=== PATIENT | male | born 1935 | race Two or more races ===

== ENCOUNTER → 2016-09-29 | Outpatient (CLI) | payer MEDICARE ==
[2016-09-29 09:57] LABS: ALANINE AMINOTRANSFERASE 77 U/L (21-72); ALKALINE PHOSPHATASE 59 U/L (38-126); ASPARTATE AMINO TRANSFERASE 41 U/L (17-59); BILIRUBIN,DIRECT 0.5 mg/dL (0.0-0.4); CHOLESTEROL 141.79 mg/dL (0-200); Direct HDL 59 mg/dL (>40); MAGNESIUM 2.1 mg/dL (1.6-2.3); TOTAL PROTEIN 6.8 g/dL (6.3-8.2); TRIGLYCERIDES 125 mg/dL (<150)
[2016-09-29 10:06] LABS: ANION GAP 12 (5-19); BLOOD UREA NITROGEN 19 mg/dL (7-20); CALCIUM 9.6 mg/dL (8.4-10.2); CARBON DIOXIDE 26 mmol/L (22-30); CHLORIDE 103 mmol/L (98-107); CREATININE RESULT 1.01 mg/dL (0.52-1.25); GLUCOSE 129 mg/dL (75-110); POTASSIUM 4.4 mmol/L (3.6-5.0); SODIUM 141.4 mmol/L (137-145)
[2016-09-29 10:08] LABS: DIRECT LDL 50 mg/dL (<100)
== END ==
LOC: OD 08:10
PROVIDERS: ATTEND Internal Medicine Cardiovascular Disease
DX: Z79.899 Other long term (current) drug therapy (principal); I49.3 Ventricular premature depolarization; E78.00 Pure hypercholesterolemia, unspecified
CPT/HCPCS: 36415; 80048; 80061; 80076; 82977; 83735

== ENCOUNTER → 2017-01-01 | Outpatient (CLI) | payer MEDICARE ==
[2017-01-01 10:32] LABS: ALANINE AMINOTRANSFERASE 28 U/L (21-72); ALBUMIN 3.6 g/dL (3.5-5.0); ALKALINE PHOSPHATASE 78 U/L (38-126); ANION GAP 10 (5-19); ASPARTATE AMINO TRANSFERASE 25 U/L (17-59); BILIRUBIN,DIRECT 0.4 mg/dL (0.0-0.4); BILIRUBIN,TOTAL 0.5 mg/dL (0.2-1.3); BLOOD UREA NITROGEN 24 mg/dL (7-20); CALCIUM 9.8 mg/dL (8.4-10.2); CARBON DIOXIDE 25 mmol/L (22-30); CHLORIDE 103 mmol/L (98-107); CHOLESTEROL 130.15 mg/dL (0-200); CREATININE RESULT 0.89 mg/dL (0.52-1.25); Direct HDL 53 mg/dL (>40); GLUCOSE 137 mg/dL (75-110); POTASSIUM 4.7 mmol/L (3.6-5.0); SODIUM 138.3 mmol/L (137-145); TOTAL PROTEIN 6.5 g/dL (6.3-8.2); TRIGLYCERIDES 96 mg/dL (<150)
[2017-01-01 10:43] LABS: DIRECT LDL 51 mg/dL (<100)
== END ==
LOC: OD 08:23
PROVIDERS: ATTEND Internal Medicine Cardiovascular Disease
DX: Z79.899 Other long term (current) drug therapy (principal); E78.00 Pure hypercholesterolemia, unspecified; R73.9 Hyperglycemia, unspecified
CPT/HCPCS: 36415; 80048; 80061; 80076; 83036

== ENCOUNTER → 2017-04-26 | Outpatient (CLI) | payer MEDICARE, OTHER ==
[2017-04-26 09:56] LABS: ANION GAP 13 (5-19); BLOOD UREA NITROGEN 18 mg/dL (7-20); CARBON DIOXIDE 26 mmol/L (22-30); CHLORIDE 101 mmol/L (98-107); CREATININE RESULT 1.23 mg/dL (0.52-1.25); GLUCOSE 169 mg/dL (75-110); MAGNESIUM 1.8 mg/dL (1.6-2.3); POTASSIUM 3.8 mmol/L (3.6-5.0); SODIUM 140.1 mmol/L (137-145)
== END ==
LOC: OD 08:14
PROVIDERS: ATTEND Internal Medicine Cardiovascular Disease
DX: E11.9 Type 2 diabetes mellitus without complications (principal); I49.3 Ventricular premature depolarization; E55.9 Vitamin D deficiency, unspecified
CPT/HCPCS: 36415; 80048; 82306; 83036; 83735

== ENCOUNTER → 2017-08-01 | Outpatient (CLI) | payer MEDICARE, OTHER ==
[2017-08-01 12:18] LABS: ANION GAP 12 (5-19); BLOOD UREA NITROGEN 24 mg/dL (7-20); CALCIUM 9.9 mg/dL (8.4-10.2); CARBON DIOXIDE 23 mmol/L (22-30); CHLORIDE 106 mmol/L (98-107); GLUCOSE 169 mg/dL (75-110); POTASSIUM 4.2 mmol/L (3.6-5.0); SODIUM 141.2 mmol/L (137-145)
[2017-08-01 15:38] LABS: CHOLESTEROL 159.44 mg/dL (0-200); TRIGLYCERIDES 109 mg/dL (<150)
[2017-08-01 15:48] LABS: DIRECT LDL 56 mg/dL (<100)
== END ==
LOC: OD 10:51
PROVIDERS: ATTEND Internal Medicine Cardiovascular Disease
DX: E78.00 Pure hypercholesterolemia, unspecified (principal); I10 Essential (primary) hypertension; E11.9 Type 2 diabetes mellitus without complications; E55.9 Vitamin D deficiency, unspecified; E83.42 Hypomagnesemia
CPT/HCPCS: 36415; 80048; 80061; 82306; 83036; 83735

== ENCOUNTER → 2018-02-26 | Outpatient (CLI) | payer MEDICARE, OTHER ==
[2018-02-26 10:22] LABS: ANION GAP 8 (5-19); BLOOD UREA NITROGEN 18 mg/dL (7-20); CALCIUM 9.8 mg/dL (8.4-10.2); CARBON DIOXIDE 28 mmol/L (22-30); CHLORIDE 104 mmol/L (98-107); GLUCOSE 107 mg/dL (75-110); POTASSIUM 4.8 mmol/L (3.6-5.0); SODIUM 140.2 mmol/L (137-145)
== END ==
LOC: OD 08:39
PROVIDERS: ATTEND Internal Medicine Cardiovascular Disease
DX: I10 Essential (primary) hypertension (principal); I49.3 Ventricular premature depolarization; E11.9 Type 2 diabetes mellitus without complications
CPT/HCPCS: 36415; 80048; 83036

== ENCOUNTER 2018-04-18 17:51 | Inpatient (IN) | payer MEDICARE ==
[2018-04-18] MEDS ORDERED: FUROSEMIDE INJ/PF 20 MG/2 ML SDV IV ONE ×2 (18:20→21:00)
[2018-04-18 18:32] LABS: ABSOLUTE EOSINOPHILS # (AUTO) 0.1 10^3/uL (0.0-0.6); ABSOLUTE LYMPHOCYTES (AUTO) 1.7 10^3/uL (0.5-4.7); ABSOLUTE MONOCYTES (AUTO) 1.4 10^3/uL (0.1-1.4); ABSOLUTE NEUT (AUTO) 11.6 10^3/uL (1.7-8.2); BASOPHILS % (AUTO) 0.1 % (0-2); EOSINOPHILS % (AUTO) 0.4 % (0-6); HEMATOCRIT 37.6 % (37.9-51.0); LYMPHOCYTES % (AUTO) 11.6 % (13-45); MEAN CORPUSCULAR HEMOGLOBIN 33.8 pg (27.0-33.4); MEAN CORPUSCULAR HGB CONC 34.4 g/dL (32.0-36.0); MEAN CORPUSCULAR VOLUME 98 fl (80-97); MONOCYTES % (AUTO) 9.2 % (3-13); PLATELET COUNT 486 10^3/uL (150-450); RED BLOOD COUNT 3.83 10^6/uL (4.35-5.55); SEGMENTED NEUTROPHILS % (AUTO) 78.7 % (42-78); TOTAL CELLS COUNTED % (AUTO) 100 %; WHITE BLOOD COUNT 14.7 10^3/uL (4.0-10.5)
[2018-04-18 18:38] LABS: INTERNATIONAL RATION (INR) 1.17; PROTHROMBIN TIME 15.5 SEC (11.4-15.4)
[2018-04-18 18:47] LABS: ALANINE AMINOTRANSFERASE 25 U/L (21-72); ALBUMIN 2.9 g/dL (3.5-5.0); ALKALINE PHOSPHATASE 747 U/L (38-126); ANION GAP 12 (5-19); ASPARTATE AMINO TRANSFERASE 25 U/L (17-59); BILIRUBIN,DIRECT 0.7 mg/dL (0.0-0.4); BILIRUBIN,TOTAL 0.9 mg/dL (0.2-1.3); BLOOD UREA NITROGEN 60 mg/dL (7-20); CALCIUM 9.2 mg/dL (8.4-10.2); CARBON DIOXIDE 25 mmol/L (22-30); CHLORIDE 97 mmol/L (98-107); CREATINE KINASE 46 U/L (55-170); GLUCOSE 237 mg/dL (75-110); POTASSIUM 4.5 mmol/L (3.6-5.0); SODIUM 133.5 mmol/L (137-145); TOTAL PROTEIN 6.3 g/dL (6.3-8.2)
[2018-04-18 18:58] LABS: CREATINE KINASE MB 2.17 ng/mL (<4.55); TROPONIN I 0.017 ng/mL
--- NOTE | 2018-04-18 19:14 | RADIOLOGY REPORT (SQ) ---
EXAM DESCRIPTION: CHEST SINGLE VIEW COMPLETED DATE/TIME: 04/18/2018 6:50 pm REASON FOR STUDY: short of breath COMPARISON: None. EXAM PARAMETERS: NUMBER OF VIEWS: One view. TECHNIQUE: Single frontal radiographic view of the chest acquired. RADIATION DOSE: NA LIMITATIONS: None. FINDINGS: LUNGS AND PLEURA: Dense opacity or mass in the left midzone. Minimal opacity at the left base. Right lung is clear. MEDIASTINUM AND HILAR STRUCTURES: No masses. Contour normal. HEART AND VASCULAR STRUCTURES: Heart normal in size. Normal vasculature. BONES: No acute findings. HARDWARE: None in the chest. OTHER: No other significant finding. IMPRESSION: Dense opacity or mass in the left midzone. Left basilar pneumonia. TECHNICAL DOCUMENTATION: JOB ID: [id number] [employer]- All Rights Reserved Reading location - IP/workstation name: [email or web address]
[2018-04-18] MEDS ORDERED: AZITHROMYCIN INJ 500 MG VIAL IV ONE (20:37)
--- NOTE | 2018-04-18 21:00 | ER Document Report ---
ED General - General Chief Complaint: Shortness Of Breath Stated Complaint: SHORTNESS OF BREATH,WEAKNESS Time Seen by Provider: 04/18/18 18:07 Mode of Arrival: Ambulatory Information source: Patient, Relative TRAVEL OUTSIDE OF THE [place] IN LAST 30 DAYS: No - HPI Patient complains to provider of: dyspnea Onset: Other - 83-year-old man that presents for evaluation of dyspnea as well as leg swelling. He notes that he has had 4 stents placed in the past but is never been told that he has heart failure. Since , 1 week prior, he has had worsening shortness of breath and leg swelling as well as generalized fatigue and malaise. He notes that nothing is made it better and exertion seems to make it much worse 3 days ago he had an episode where he had intense left-sided shoulder pain which then improved steadily and he had an aching shoulder for a day thereafter. Denies any loss of consciousness does endorse some lightheadedness on exertion. - Related Data Allergies/Adverse Reactions: clopidogrel [From Plavix] Allergy (Severe, Verified 04/18/18 22:11) Hives hydrocodone [From Vicodin] Allergy (Unknown, Verified 04/18/18 22:11) acetaminophen [From Vicodin] Allergy (Verified 04/18/18 19:39) Past Medical History - General Information source: Patient, Relative - Social History Smoking Status: Never Smoker Chew tobacco use (# tins/day): No Frequency of alcohol use: Occasional Drug Abuse: None Family History: None Patient has suicidal ideation: No Patient has homicidal ideation: No Renal/ Medical History: Denies: Hx Peritoneal Dialysis Review of Systems - Review of Systems -: Yes All other systems reviewed and negative Physical Exam - Vital signs Vitals: Temp Pulse Resp BP Pulse Ox 98.2 F 77 16 85/46 L 95 04/18/18 17:56 04/18/18 17:56 04/18/18 17:56 04/18/18 17:56 04/18/18 17:56 - General General appearance: Alert In distress: Mild - HEENT Head: Normocephalic Eyes: Normal Conjunctiva: Normal Cornea: Normal - Respiratory Respiratory status: Tachypnea Chest status: Nontender Breath sounds: Rhonchi Chest palpation: Normal - Cardiovascular Rhythm: Regular Heart sounds: Normal auscultation Murmur: No - Abdominal Inspection: Normal Distension: No distension Tenderness: Nontender - Back Back: Normal - Extremities General upper extremity: Normal inspection, Nontender, Normal ROM, Normal strength General lower extremity: Normal inspection, Edema - +3 pitting edema, Normal ROM - Neurological Neuro grossly intact: Yes Cognition: Normal Orientation: AAOx4 - Psychological Associated symptoms: Normal affect, Normal mood Course - Re-evaluation Re-evalutation: 83-year-old man with significant cardiac disease as well as now dyspnea, he does have weight gain appreciable and did have an episode where he had shoulder pain. Because of the concern is this representing decompensated heart failure will administer diuretic this patient has marginal blood pressure right now we will plan for frequent reassessment in the emergency department. Following 20 mg of IV Lasix patient has had his start diuresis. He is got a significant uremia increased creatinine, slight leukocytosis his chest x-ray is concerning for a probable infiltrate. It is difficult to assess whether or not this patient has decompensated heart failure or potentially an underlying insidious infection. He is improved somewhat with the diuretic but he could still have a underlying pneumonia. Clinically he appears fluid overloaded he has edema in the bilateral lower extremities and crackles in the lungs. Have spoken to the hospitalist as I believe that this patient will require admission to the hospital and ongoing monitoring and management. She is agreed to evaluate this patient and admit him to the hospital. I did administer antibiotics as there was a concern that he had a pneumonia on chest x -ray with his dyspnea. - Vital Signs Vital signs: Temp Pulse Resp BP Pulse Ox 98.2 F 80 18 110/54 L 93 04/18/18 23:43 04/18/18 23:43 04/18/18 23:43 04/18/18 23:43 04/18/18 23:43 - Laboratory Result Diagrams: 04/18/18 18:08 04/18/18 18:08 Laboratory results interpreted by me: 04/18/18 04/18/18 04/18/18 18:08 18:08 18:08 WBC 14.7 H RBC 3.83 L Hgb 13.0 L Hct 37.6 L MCV 98 H MCH 33.8 H Plt Count 486 H Seg Neutrophils % 78.7 H Lymphocytes % 11.6 L Absolute Neutrophils 11.6 H PT 15.5 H APTT 44.0 H Sodium 133.5 L Chloride 97 L BUN 60 H Creatinine 1.82 H Est GFR ( Amer) 43 L Est GFR (Non-Af Amer) 36 L Glucose 237 H Direct Bilirubin 0.7 H Alkaline Phosphatase 747 H Creatine Kinase 46 L NT-Pro-B Natriuret Pep Albumin 2.9 L 04/18/18 18:08 WBC RBC Hgb Hct MCV MCH Plt Count Seg Neutrophils % Lymphocytes % Absolute Neutrophils PT APTT Sodium Chloride BUN Creatinine Est GFR ( Amer) Est GFR (Non-Af Amer) Glucose Direct Bilirubin Alkaline Phosphatase Creatine Kinase NT-Pro-B Natriuret Pep 796 H Albumin Discharge - Discharge Clinical Impression: Pneumonia Qualifiers: Pneumonia type: due to unspecified organism Laterality: unspecified laterality Lung location: unspecified part of lung Qualified Code(s): J18.9 - Pneumonia, unspecified organism CHF (congestive heart failure) Qualifiers: Heart failure type: unspecified Heart failure chronicity: unspecified Qualified Code(s): I50.9 - Heart failure, unspecified Dyspnea Qualifiers: Dyspnea type: unspecified Qualified Code(s): R06.00 - Dyspnea, unspecified Condition: Stable Disposition: ADMITTED INPATIENT Admitting Provider: Hospitalist Unit Admitted: Telemetry
[2018-04-18] MEDS ORDERED: PROMETHAZINE HCL INJ 25 MG/1 ML VIAL IV PRN (21:46)
[2018-04-18] MEDS ORDERED: ACETAMINOPHEN 325 MG TABLET PO PRN (21:46)
[2018-04-18] MEDS ORDERED: MAG HYDROX/AL HYDROX/SIMETH SUSP 30 ML UDCUP PO PRN (21:46)
[2018-04-18] MEDS ORDERED: TEMAZEPAM 15 MG CAPSULE PO PRN (21:46)
[2018-04-18] MEDS ORDERED: IPRATROPIUM/ALBUTEROL 0.5-2.5 MG/3 ML AMPUL NEB PRN (21:46)
[2018-04-18] MEDS ORDERED: PROMETHAZINE HCL 25 MG TABLET PO PRN (21:46)
[2018-04-18] MEDS ORDERED: GLUCAGON,HUMAN RECOMB 1 MG INJ IM PRN (21:53)
[2018-04-18] MEDS ORDERED: DEXTROSE 40% GEL 15 GM TUBE PO PRN ×2 (21:53)
[2018-04-18] MEDS ORDERED: DEXTROSE 50%-WATER 25 GM/50 ML DISP.SYRIN IV PRN ×2 (21:53)
[2018-04-18] MEDS ORDERED: CEFTRIAXONE 1 GM/D5W RTU 1 GM/50 ML RTUPB IV SCH (22:00)
[2018-04-18 22:22] LABS: APPEARANCE,URINE SLIGHTLY-CLOUDY; BILIRUBIN,URINE NEGATIVE (NEGATIVE); COLOR,URINE YELLOW; GLUCOSE, URINE NEGATIVE (NEGATIVE); KETONES,URINE NEGATIVE (NEGATIVE); LEUKOCYTE ESTERASE,URINE NEGATIVE (NEGATIVE); NITRITE,URINE NEGATIVE (NEGATIVE); PROTEIN,URINE NEGATIVE (NEGATIVE); URINE SPECIFIC GRAVITY 1.015; UROBILINOGEN,URINE NEGATIVE mg/dL (<2.0)
--- NOTE | 2018-04-18 22:27 | PDOC H&P ---
History of Present Illness Admission Date/PCP: 04/18/2018 ANABELLA DESAI Patient complains of: Shortness of breath History of Present Illness: LIBRA GUZMAN is a 83 year old male with remarkably medical history of ME with 5 stents placed, diabetes mellitus, chronic pancreatic cyst, hypertension. Patient comes to the emergency department after feels sick Thanks evening , tells me he has been feeling bad all over, he denies any pain, complains of lower abdominal pain that day and he went to sleep for 16 hours. Sunday no known started with the left shoulder pain is sharp in nature intense up to 10/ 10 intensity that made him collapse, the pain was not getting worse with movements and never have similar pain in the past, he denies having chest pain at that time but has noticed progressive shortness of breath upon exertion, he has also noticed worsening lower extremities edema which is new to him. Denies cough but feels chest congestion, denies wheezing. Patient has lost 50 pounds in 3 years tells me that was intentionally. Denies night sweats. Today he went to see a doctor at [facility] as he was very concerned about his of shortness of breath and new lower extremities edema and he was sent to the emergency department. In the emergency department the chest x-ray shows opacities in the left mid zone of the left long that it is not clear if this is a mass, edema or pneumonia. In the emergency department the patient had a borderline blood pressure of 95/59, 20+20 mg of IV Lasix given with drop of the blood pressure but subsequently improved. IV azithromycin given. BNP 796, no prior to compare to. Past Medical History Cardiac Medical History: Reports: Coronary Artery Disease - 5 stents placed in 1999, Myocardial Infarction, Hyperlipidema, Hypertension Endocrine Medical History: Reports: Diabetes Mellitus Type 2 GI Medical History: Reports: Other - Pancreatic cyst with drainage every 6 months. History of acute pancreatiti Past Surgical History Past Surgical History: Reports: Cardiac Catheterization, Orthopedic Surgery - Right rotator cuff surgery Social History Information Source: Patient Smoking Status: Never Smoker Frequency of Alcohol Use: Occasional - 1 drink a day can be wine or beer or other Hx Recreational Drug Use: No Hx Prescription Drug Abuse: No Past Social History Note: Lives alone, his son is at the bedside Family History Family History: Father when he was 49 years old, presume heart disease. Mother with history of uterine cancer. Parental Family History Reviewed: Yes - As above Children Family History Reviewed: Yes Sibling(s) Family History Reviewed.: Yes Medication/Allergy Home Medications: Benazepril HCl [Lotensin 20 mg Tablet] 20 mg PO DAILY 04/18/18 Furosemide [Lasix 20 mg Tablet] 20 mg PO DAILY 04/18/18 Hydrochlorothiazide 12.5 mg PO DAILY 04/18/18 Insulin Glargine,Hum.rec.anlog [Lantus Insulin 100 Unit/mL] 10 unit SQ DAILY Lipase/Protease/Amylase [Creon Dr 36,000 Units Capsule] 1 cap PO BID 04/18/18 Nifedipine [Procardia XL 60 mg Tablet] 60 mg PO DAILY 04/18/18 Pantoprazole Sodium 40 mg PO QAM 04/18/18 Allergies/Adverse Reactions: clopidogrel [From Plavix] Allergy (Severe, Verified 04/18/18 22:11) Hives hydrocodone [From Vicodin] Allergy (Unknown, Verified 04/18/18 22:11) acetaminophen [From Vicodin] Allergy (Verified 04/18/18 19:39) Review of Systems Review of Systems: As outlined in the HPI, all others negative Physical Exam Vital Signs: Temp Pulse Resp BP Pulse Ox 98.2 F 77 20 105/66 95 04/18/18 17:56 04/18/18 17:56 04/18/18 21:01 04/18/18 21:01 04/18/18 21:01 Intake & Output 04/17/18 04/18/18 04/19/18 06:59 06:59 06:59 Weight 62.9 kg Additional comments: General appearance: Well-developed, well-nourished, alert and cooperative, and appears to be in no acute distress Head: Normocephalic Eyes: PEERL, EOMI, vision is grossly intact. Ears: External auditory canal and tympanic membranes clear, hearing grossly intact. Nose: No nasal discharge. Throat: Oral cavity and pharynx normal. No inflammation, swelling, exudate or lesions. Neck: Neck supple, nontender without lymphadenopathy, masses or thyromegaly. Cardiac: Normal S1 and S2. No S3, S4 or murmurs. Rhythm is regular. There is no cyanosis or pallor. Extremities are warm and well perfused. Capillary refill is less than 2 seconds. No carotid bruits. Lungs: Clear to auscultation and percussion without rales, rhonchi, wheezing or diminished breath sounds. Not using accessory muscles. Abdomen: Positive bowel sounds. Soft. Nondistended, nontender. No guarding or rebound. No masses. No hepatosplenomegaly Extremities: No significant deformity or joint abnormality. 4+ lower extremities pitting edema. Peripheral pulses intact. No varicosities. Neurological: Cranial nerves II through XII grossly intact. Strength and sensation symmetric and intact throughout. Reflexes 2+ throughout. Skin: Skin normal color, texture and turgor with no lesions or eruptions, warm and dry. Psychiatric: The mental examination revealed the patient was oriented to person , place, and time. The patient was able to demonstrate good judgment on recent , without hallucinations, abnormal affect or abnormal behaviors. Results Laboratory Results: 04/18/18 18:08 04/18/18 18:08 04/18/18 04/18/18 18:08 18:08 WBC 14.7 H RBC 3.83 L Hgb 13.0 L Hct 37.6 L MCV 98 H MCH 33.8 H MCHC 34.4 RDW 14.0 Plt Count 486 H Seg Neutrophils % 78.7 H Lymphocytes % 11.6 L Monocytes % 9.2 Eosinophils % 0.4 Basophils % 0.1 Absolute Neutrophils 11.6 H Absolute Lymphocytes 1.7 Absolute Monocytes 1.4 Absolute Eosinophils 0.1 Absolute Basophils 0.0 Sodium 133.5 L Potassium 4.5 Chloride 97 L Carbon Dioxide 25 Anion Gap 12 BUN 60 H Creatinine 1.82 H Est GFR ( Amer) 43 L Est GFR (Non-Af Amer) 36 L Glucose 237 H Calcium 9.2 Total Bilirubin 0.9 AST 25 ALT 25 Alkaline Phosphatase 747 H Total Protein 6.3 Albumin 2.9 L 04/18/18 04/18/18 04/18/18 18:08 18:08 20:53 Creatine Kinase 46 L CK-MB (CK-2) 2.17 Troponin I 0.017 0.016 NT-Pro-B Natriuret Pep 796 H EKG Comments: Normal sinus rhythm with a ventricular rate of 71 bpm Impressions: Chest X-Ray 04/18/18 18:17 IMPRESSION: Dense opacity or mass in the left midzone. Left basilar pneumonia. Assessment & Plan - Diagnosis (1) Exertional dyspnea Is this a current diagnosis for this admission?: Yes Plan: Patient comes to the emergency department mainly for progressive exertional dyspnea associated with increased lower extremities edema, will have to rule out different etiologies as the chest x-ray shows some opacities in the left mid zone which can be infiltrates, mass or pulmonary edema. 1) possible new onset CHF in this patient with history of 5 stents in the past, BNP 796, we do not have any prior to compared to. Patient has received 40 mg total of IV Lasix but the blood pressure tends to go as low as 70s over 50s so at this time I will hold on IV diuretics including his p.o. home hydrochlorothiazide and Lasix. I am requesting an echocardiogram. Leg elevation for his severe lower extremities edema. Input and output every 8 hours as well as daily weights. Cardiac markers x3. 2) possible community-acquired pneumonia. Patient's progressive shortness of breath, leukocytosis with white blood cell count 14.7 and a positive opacity in the left lung mid zone associated with possible left lower lobe pneumonia. We will continue with IV antibiotics with Rocephin and azithromycin, this point do not feel that the patient is to be placed on a steroids. A sputum culture if possible as the patient is not expectorating. Nebulizer treatments every 3 hours as needed. I requested a CT chest with no contrast to clarify the diagnosis. 3) possible left lung mid zone mass as read by the radiologist, the patient has lost 50 pounds in the last 3 years as per him intentionally, denies night sweats , no history of lung cancer in his family and he is never been a smoker. CT chest ordered. (2) Transient hypotension Is this a current diagnosis for this admission?: Yes Plan: After a total of 40 mg of IV Lasix blood pressure drop to 70s over 50s, that rapidly increased to 90s over 60s again, I will hold diuretics for tonight. (3) Acute kidney injury Is this a current diagnosis for this admission?: Yes Plan: BUN 60 with creatinine of 1.62, February this year his renal function has been normal. I am requesting UA, urine sodium and urine creatinine as well as kidney ultrasound. Will place on hold his Lasix, hydrochlorothiazide and benazepril for tonight. Will reassess his renal panel in the morning. At this point unfortunately I am not restarting IV fluids as possible acute CHF exacerbation. (4) Diabetes mellitus type 2 in nonobese Is this a current diagnosis for this admission?: Yes Plan: Insulin-dependent diabetes mellitus, will resume his home insulin. Accu-Cheks q. before meals and at bedtime, insulin lispro sliding scale and hypoglycemia protocol. We will send A1c for the morning. (5) Hypertension Qualifiers: Hypertension type: essential hypertension Qualified Code(s): I10 - Essential (primary) hypertension Is this a current diagnosis for this admission?: Yes Plan: Patient tells me that his blood pressure is usually very well controlled at home , unfortunately has been borderline hypotensive tonight so I am holding his home benazepril, nifedipine, Lasix and HCTZ. Will reassess in the morning. (6) Coronary artery disease Qualifiers: Coronary Disease-Associated Artery/Lesion type: [place] artery Is this a current diagnosis for this admission?: Yes Plan: Patient with history of coronary artery disease and 5 for stent placed in 1999, concerned that his left shoulder pain is related with her disease. We are going to keep the patient under telemetry monitoring and will cycle his cardiac enzymes total of x3. Resume home medications. If still high suspicious by the morning patient might have to go for a stress test. (7) DVT prophylaxis Is this a current diagnosis for this admission?: Yes Plan: Heparin - Time Time Spent: 30 to 50 Minutes - Inpatient Certification Based on my medical assessment, after consideration of the patient's comorbidities, presenting symptoms, or acuity I expect that the services needed warrant INPATIENT care.: Yes I certify that my determination is in accordance with my understanding of Medicare's requirements for reasonable and necessary INPATIENT services [42 CFR 412.3e].: Yes Medical Necessity: Risk of Complication if Not Cared For in Hospital - Worsening renal function. Acute respiratory failure with respiratory arrest. - Plan Summary Plan Summary: Case discussed with patient and his son at the bedside, agree with plan.
[2018-04-18] MEDS: HEPARIN SOD (PORCINE) 5,000 UNIT/ML 1 ML SYRINGE SUBCUT SCH (22:36)
[2018-04-18] MEDS: INSULIN LISPRO 100 UNIT/ML 3 ML VIAL SUBCUT PRN (23:06)
--- NOTE | 2018-04-18 23:21 | RADIOLOGY REPORT (SQ) ---
EXAM DESCRIPTION: CT CHEST WITHOUT IV CONTRAST COMPLETED DATE/TME: 04/18/2018 00:00 CLINICAL HISTORY: 83 years, Male, lung mass vs pna vs chf COMPARISON: None. TECHNIQUE: 290 Images stored on PACS. All CT scanners at this facility use dose modulation, iterative reconstruction, and/or weight based dosing when appropriate to reduce radiation dose to as low as reasonably achievable (ALARA). [facility]: Dose Right [facility]: CareDose [facility]: Dose Right [facility]: Teradose 4D [facility]: Mappyfriends LIMITATIONS: None. FINDINGS: Evaluation of the mediastinum and hilum is limited due to lack of IV contrast. However, no convincing evidence for mediastinal adenopathy. Coronary artery calcification. The heart and pericardium are otherwise unremarkable. Limited evaluation of the upper abdomen demonstrates ascites as well as partial visualization of a heterogeneous mixed cystic and solid mass. Inseparable from the pancreas. The gallbladder is distended. There is also a large cystic mass measuring 12.9 x 8.3 cm in the left upper quadrant with mass effect on the stomach. The adrenal glands are unremarkable. Multiple varices of the upper abdomen are suggested. Bilateral renal cysts are partially seen. Haziness of the peritoneal fat. Suspected retroperitoneal adenopathy which may be necrotic. Biliary ductal dilatation with a poorly defined lesion in the right hepatic lobe measuring 2.0 x 2.3 cm. Osseous structures are grossly intact. No pneumothorax. The visualized airways are patent. Extensive cavitary nodules bilaterally. In addition there is a complex airspace opacity of the left upper lobe anteriorly extending to the left hilar region. This also has a cavitary component. The largest cavitary lesion is in the superior segment of the posterior right lung base measuring 2.7 x 2.5 cm. Multiple other subcentimeter noncavitary pulmonary nodules are present bilaterally, likely metastatic in nature. Tiny left pleural effusion. IMPRESSION: Extensive cavitary as well as noncavitary/solid nodules bilaterally, likely metastatic in nature. A more confluent airspace opacity in the anterior left upper lobe also demonstrates a cavitary component. Tiny left pleural effusion. Limited evaluation of the upper abdomen shows partial visualization of a complex mass appearing to be centered within the pancreas with suspected retroperitoneal adenopathy which may be necrotic. There is biliary ductal dilatation. Partial visualization of a poorly defined lesion within the right hepatic lobe. Ascites. Peritoneal inflammatory change and nodularity for which metastatic implants are not excluded. Cystic mass in the left upper quadrant, possibly associated with the stomach wall, versus extending exophytically from the pancreas causing mass effect on the stomach. TECHNICAL DOCUMENTATION: Quality ID # [id number]: Final reports with documentation of one or more dose reduction techniques (e.g., Automated exposure control, adjustment of the mA and/or kV according to patient size, use of iterative reconstruction technique) copyright 2011 [employer]- All Rights Reserved
--- NOTE | 2018-04-19 01:40 | RADIOLOGY REPORT (SQ) ---
EXAM DESCRIPTION: US RETROPERITONEUM COMPLETED DATE/TME: 04/18/2018 00:00 CLINICAL HISTORY: Acute renal failure/renal ultrasound COMPARISON: None. TECHNIQUE: Real-time sonographic images of the retroperitoneum were obtained using a curved multihertz transducer. FINDINGS: The visualized portions of the aorta and IVC are unremarkable. The right kidney measures 14.7 cm in length. The left kidney measures 14.5 cm in length. 2 simple left renal cysts the largest is in the superior pole left kidney measuring 4.0 cm. There are numerous cysts in the right kidney the largest superior pole measuring 7.6 cm with internal rotations. Mild right hydronephrosis. No left hydronephrosis. The urinary bladder is nonvisualized. IMPRESSION: 1. Mild right hydronephrosis. 2. In the superior pole of the right kidney there is a heterogeneous cystic structure with internal septations. Follow-up contrast-enhanced CT or MRI of the abdomen from characterization recommended after treatment for acute illness. 3. Multiple bilateral simple appearing renal cysts.
[2018-04-19 03:44] LABS: ABSOLUTE MONOCYTES (AUTO) 1.6 10^3/uL (0.1-1.4); ABSOLUTE NEUT (AUTO) 13.5 10^3/uL (1.7-8.2); BASOPHILS % (AUTO) 0.1 % (0-2); EOSINOPHILS % (AUTO) 0.3 % (0-6); HEMATOCRIT 33.2 % (37.9-51.0); HEMOGLOBIN 11.5 g/dL (13.5-17.0); INTERNATIONAL RATION (INR) 1.18; LYMPHOCYTES % (AUTO) 6.4 % (13-45); MEAN CORPUSCULAR HEMOGLOBIN 33.4 pg (27.0-33.4); MEAN CORPUSCULAR HGB CONC 34.6 g/dL (32.0-36.0); MEAN CORPUSCULAR VOLUME 97 fl (80-97); MONOCYTES % (AUTO) 9.6 % (3-13); PLATELET COUNT 450 10^3/uL (150-450); PROTHROMBIN TIME 15.6 SEC (11.4-15.4); RED BLOOD COUNT 3.44 10^6/uL (4.35-5.55); RED CELL DISTRIBUTION WIDTH 14.3 % (11.5-14.0); SEGMENTED NEUTROPHILS % (AUTO) 83.6 % (42-78); TOTAL CELLS COUNTED % (AUTO) 100 %; WHITE BLOOD COUNT 16.2 10^3/uL (4.0-10.5)
[2018-04-19 03:45] LABS: PARTIAL THROMBOPLASTIN TIME 48.8 SEC (23.5-35.8)
[2018-04-19 03:57] LABS: ALANINE AMINOTRANSFERASE 25 U/L (21-72); ALBUMIN 2.5 g/dL (3.5-5.0); ALKALINE PHOSPHATASE 633 U/L (38-126); ANION GAP 11 (5-19); ASPARTATE AMINO TRANSFERASE 22 U/L (17-59); BILIRUBIN,DIRECT 0.6 mg/dL (0.0-0.4); BILIRUBIN,TOTAL 0.7 mg/dL (0.2-1.3); BLOOD UREA NITROGEN 54 mg/dL (7-20); CALCIUM 8.9 mg/dL (8.4-10.2); CARBON DIOXIDE 26 mmol/L (22-30); CHLORIDE 100 mmol/L (98-107); GLUCOSE 64 mg/dL (75-110); SODIUM 137.4 mmol/L (137-145); TOTAL PROTEIN 5.7 g/dL (6.3-8.2)
[2018-04-19 04:10] LABS: POTASSIUM 3.5 mmol/L (3.6-5.0)
[2018-04-19] MEDS: HEPARIN SOD (PORCINE) 5,000 UNIT/ML 1 ML SYRINGE SUBCUT SCH ×3 (05:40→21:33)
--- NOTE | 2018-04-19 07:48 | EKG REPORT ---
SEVERITY:- ABNORMAL ECG - SINUS RHYTHM MULTIPLE ATRIAL PREMATURE COMPLEXES RIGHT BUNDLE BRANCH BLOCK NONSPECIFIC ST-T CHANGES- INFERIOR LEADS : Confirmed by: Mikey Marie MD 19-Apr-2018 07:47:32
--- NOTE | 2018-04-19 07:49 | EKG REPORT ---
SEVERITY:- ABNORMAL ECG - SINUS RHYTHM IVCD, CONSIDER ATYPICAL RBBB NONSPECIFIC ST-T CHANGES- INFERIOR LEADS : Confirmed by: Mikey Marie MD 19-Apr-2018 07:48:29
[2018-04-19] MEDS: LANSOPRAZOLE 30 MG TAB.RAP.DR PO SCH (10:00)
[2018-04-19] MEDS ORDERED: LIPASE PO SCH (10:00)
[2018-04-19] MEDS ORDERED: PROTEASE PO SCH (10:00)
[2018-04-19] MEDS ORDERED: AMYLASE PO SCH (10:00)
[2018-04-19] MEDS ORDERED: AZITHROMYCIN 500 MG in DEXTROSE 5%-WATER 250 ML IV SCH (10:00)
[2018-04-19] MEDS: INSULIN GLARGINE,HUM.REC.ANLOG 300 UNIT/3 ML INSULN.PEN SUBCUT SCH (10:00)
[2018-04-19] MEDS: INSULIN LISPRO 100 UNIT/ML 3 ML VIAL SUBCUT PRN ×2 (12:04→21:43)
--- NOTE | 2018-04-19 16:05 | XCELERA REPORT ---
[address] [address] Transthoracic Echocardiogram Report Name: LIBRA GUZMAN Age: 83 yrs Gender: Male : 1935 Patient Status: Inpatient Patient Location: [address] Study Date: 04/18/2018 10:07 PM Height: 65 in Weight: 138 lb BSA: 1.7 m2 Procedure: A two-dimensional transthoracic echocardiogram with color flow and Doppler was performed. The study was technically difficult with many images being suboptimal in quality. Images were not obtained from all of the standard acoustic windows due to the limited scope of the study. Reason For Study: Possible new onset CHF History: CHF. Ordering Physician: PALMER VARGAS Performed By: Jeanette Carter Interpretation Summary The left ventricle is normal in size. There is normal left ventricular wall thickness. Doppler measurements suggest impaired left ventricular relaxation, which is associated with grade I/IV or mild diastolic dysfunction No True apical 2 chamber views obtained.Hence cannot comment on the apical anterior , the basal anterior, the basal inferior and apical inferior rodriguez.The mid anterior , the mid inferior and the rest of the LV rodriguez contract normally. .Normal LVEF is normal and is greater thn 55% in the limited views. The right ventricle is grossly normal size. The right atrium is normal. The left atrial size is normal. There is no evidence of mitral valve prolapse. There is no vegetation seen on the mitral valve. There is no mitral valve stenosis. There is no mitral regurgitation noted. There is no aortic valvular vegetation. There is no aortic valve stenosis There is no LVOT obstruction. There is aortic sclerosis without aortic stenosis. There is a mild amount of aortic regurgitation There is no tricuspid stenosis. There is a mild amount of tricuspid regurgitation There is mild pulmonary hypertension by echo RVSP is 37 mm of Hg , with RA mean of 10. There is no pulmonic valvular stenosis. There is no pulmonic valvular regurgitation. The aortic root is normal size. There is no pericardial effusion. MMode/2D Measurements & Calculations RVDd: 2.5 cm LVIDd: 5.2 cm FS: 28.0 % Ao root diam: 3.6 cm IVSd: 1.1 cm LVIDs: 3.7 cm EDV(Teich): 128.3 ml Ao root area: 10.0 cm2 LVPWd: 1.1 cm ESV(Teich): 59.3 ml LA dimension: 3.8 cm EF(Teich): 53.8 % Doppler Measurements & Calculations MV E max moraima: MV P1/2t max moraima: AI max moraima: LV V1 max P.8 cm/sec 78.5 cm/sec 132.8 cm/sec 2.6 mmHg MV A max moraima: MV P1/2t: 76.0 msec AI max P.1 mmHgLV V1 max: 99.2 cm/sec MVA(P1/2t): 2.9 cm2 AI dec slope: 80.9 cm/sec MV E/A: 0.57 MV dec slope: 93.3 cm/sec2 AI P1/2t: 302.5 cm/sec2 416.8 msec MV dec time: 0.26 sec PA V2 max: TR max moraima: AV P1/2t-pr_phl: MV P1/2t-pr_phl: 111.3 cm/sec 260.6 cm/sec 416.8 msec 76.0 msec PA max PG: TR max P.2 mmHg 5.0 mmHg Left Ventricle The left ventricle is normal in size. There is normal left ventricular wall thickness. No True apical 2 chamber views obtained.Hence cannot comment on the apical anterior , the basal anterior, the basal inferior and apical inferior rodriguez.The mid anterior , the mid inferior and the rest of the LV rodriguez contract normally. .Normal LVEF is normal and is greater thn 55% in the limited views. Doppler measurements suggest impaired left ventricular relaxation, which is associated with grade I/IV or mild diastolic dysfunction. There is no thrombus. Right Ventricle The right ventricle is grossly normal size. Atria The right atrium is normal. The left atrial size is normal. Mitral Valve There is no evidence of mitral valve prolapse. There is no vegetation seen on the mitral valve. There is no mitral valve stenosis. There is no mitral regurgitation noted. Aortic Valve There is no aortic valvular vegetation. There is no aortic valve stenosis. There is no LVOT obstruction. There is aortic sclerosis without aortic stenosis. There is a mild amount of aortic regurgitation. Tricuspid Valve There is no tricuspid stenosis. There is a mild amount of tricuspid regurgitation. There is mild pulmonary hypertension by echo. RVSP is 37 mm of Hg , with RA mean of 10. Pulmonic Valve There is no pulmonic valvular stenosis. There is no pulmonic valvular regurgitation. Great Vessels The aortic root is normal size. Effusions There is no pericardial effusion. : PALMER VARGAS > Deb Smallwood
--- NOTE | 2018-04-19 16:48 | RADIOLOGY REPORT (SQ) ---
EXAM DESCRIPTION: NM BONE SCAN WHOLE BODY COMPLETED DATE/TME: 04/19/2018 00:00 CLINICAL HISTORY: 83 years, Male, Mets COMPARISON: None. RADIONUCLIDE AND DOSE: 20.3 mCi technetium 99m HDP ADDITIONAL DRUGS AND DOSES: None TECHNIQUE: Following IV administration of radio nucleotide, total body bone scan images were obtained in the anterior and posterior projections. RADIATION DOSE: Not stated LIMITATIONS: None. FINDINGS: Normal background activity within osseous structures. Normal activity within the kidneys and urinary bladder. Complex cystic lesion associated with the right kidney described on prior ultrasound is not definitively seen on this exam. No suspicious areas of activity within the axial or appendicular skeletons. Mild activity of the shoulders, knees, and feet, likely degenerative.. IMPRESSION: No scintigraphic evidence for osseous metastasis at this time copyright 2011 [employer]- All Rights Reserved
[2018-04-19] MEDS ORDERED: PIPERACILLIN SODIUM/TAZOBACTAM 4.5 GM in NORMAL SALINE 100 ML IV SCH (18:15)
--- NOTE | 2018-04-19 18:30 | PDOC PROGRESS REPORT ---
Subjective Progress Note for:: 04/19/18 Subjective:: Patient stated that he feels better as compared to when he first came in. The patient denies any chest pain, shortness of breath, heart palpations,fevers, chills, nausea or vomiting. The patient stated that he does not have an appetite and his having some left hip/left lower back pain 07/28. Reason For Visit: EXERTIONAL DYSPNEA Physical Exam Vital Signs: Temp Pulse Resp BP Pulse Ox 99.0 F 89 13 119/65 97 04/19/18 08:18 04/19/18 14:00 04/19/18 08:18 04/19/18 08:18 04/19/18 08:18 Intake & Output 04/17/18 04/18/18 04/19/18 23:59 23:59 23:59 Intake Total 50 550 Balance 50 550 Weight 62.9 kg 62.9 kg General appearance: PRESENT: no acute distress, cooperative, thin Head exam: PRESENT: atraumatic, normocephalic Eye exam: PRESENT: conjunctiva pink, EOMI, PERRLA, scleral icterus Ear exam: PRESENT: normal external ear exam Mouth exam: PRESENT: moist, tongue midline Teeth exam: PRESENT: other - Dentition in good repair. Neck exam: PRESENT: full ROM Respiratory exam: PRESENT: rhonchi - Left, posterior lung base with inspiration. Cardiovascular exam: PRESENT: +S1, +S2, other - Sinus rhythm Pulses: PRESENT: normal radial pulses, +2 pedal pulses bilateral Vascular exam: PRESENT: normal capillary refill GI/Abdominal exam: PRESENT: soft, other - Active bowel sounds ascultated in all four quadrants. Rectal exam: PRESENT: deferred Extremities exam: PRESENT: full ROM, +1 edema Musculoskeletal exam: PRESENT: full ROM Neurological exam: PRESENT: alert, awake, oriented to person, oriented to place , oriented to time, oriented to situation, CN II-XII grossly intact Psychiatric exam: PRESENT: appropriate affect, normal mood Results Laboratory Results: 04/19/18 03:00 04/19/18 03:00 04/19/18 04/19/18 03:00 03:00 WBC 16.2 H RBC 3.44 L Hgb 11.5 L Hct 33.2 L MCV 97 MCH 33.4 MCHC 34.6 RDW 14.3 H Plt Count 450 Seg Neutrophils % 83.6 H Lymphocytes % 6.4 L Monocytes % 9.6 Eosinophils % 0.3 Basophils % 0.1 Absolute Neutrophils 13.5 H Absolute Lymphocytes 1.0 Absolute Monocytes 1.6 H Absolute Eosinophils 0.0 Absolute Basophils 0.0 Sodium 137.4 Potassium 3.5 L D Chloride 100 Carbon Dioxide 26 Anion Gap 11 BUN 54 H Creatinine 1.45 H Est GFR ( Amer) 56 L Est GFR (Non-Af Amer) 47 L Glucose 64 L Calcium 8.9 Magnesium 1.8 Total Bilirubin 0.7 AST 22 ALT 25 Alkaline Phosphatase 633 H Total Protein 5.7 L Albumin 2.5 L 04/19/18 04/19/18 03:00 11:02 Troponin I < 0.012 0.015 Impressions: Chest CT 04/18/18 00:00 IMPRESSION: Extensive cavitary as well as noncavitary/solid nodules bilaterally, likely metastatic in nature. A more confluent airspace opacity in the anterior left upper lobe also demonstrates a cavitary component. Tiny left pleural effusion. Limited evaluation of the upper abdomen shows partial visualization of a complex mass appearing to be centered within the pancreas with suspected retroperitoneal adenopathy which may be necrotic. There is biliary ductal dilatation. Partial visualization of a poorly defined lesion within the right hepatic lobe. Ascites. Peritoneal inflammatory change and nodularity for which metastatic implants are not excluded. Cystic mass in the left upper quadrant, possibly associated with the stomach wall, versus extending exophytically from the pancreas causing mass effect on the stomach. TECHNICAL DOCUMENTATION: Quality ID # 436: Final reports with documentation of one or more dose reduction techniques (e.g., Automated exposure control, adjustment of the mA and/or kV according to patient size, use of iterative reconstruction technique) copyright 2011 [employer]- All Rights Reserved Renal Ultrasound 04/18/18 00:00 IMPRESSION: 1. Mild right hydronephrosis. 2. In the superior pole of the right kidney there is a heterogeneous cystic structure with internal septations. Follow-up contrast-enhanced CT or MRI of the abdomen from characterization recommended after treatment for acute illness. 3. Multiple bilateral simple appearing renal cysts. Chest X-Ray 04/18/18 18:17 IMPRESSION: Dense opacity or mass in the left midzone. Left basilar pneumonia. Assessment & Plan - Diagnosis (1) Postobstructive pneumonia Is this a current diagnosis for this admission?: Yes Plan: Patient started on IV ceftriaxone and azithromycin for CAP; however, given the high suspicion of post obstructive pneumonia, will change antibiotics to IV zosyn. CRX completed in the ED. Findings show dense opacity or mass in left mid -zone. Minimal opacity at the left base and left basilar pneumonia. Right lung is clear. CT of chest also completed. Given the constellation of symptoms, including elevated alk phos, corrected Ca, hypoalbumnia, weight loss, persistent cough and CT findings do suspect metastatic disease. Will order bone scan. Have discussed findings and plan with patient and patient's son. ECHO was completed, as well. (2) Acute kidney injury Is this a current diagnosis for this admission?: Yes Plan: Patient's baseline creatinine is 0.8-1.0. Will repeat labs in AM. (3) Coronary artery disease Qualifiers: Coronary Disease-Associated Artery/Lesion type: [place] artery [place] vs. transplanted heart: [place] heart Associated angina: without angina Qualified Code(s): I25.10 - Atherosclerotic heart disease of [place] coronary artery without angina pectoris Is this a current diagnosis for this admission?: Yes Plan: Stable. Hold home medications due to labile blood pressures. On subcutaneous heparin. (4) Diabetes mellitus type 2 in nonobese Is this a current diagnosis for this admission?: Yes Plan: FSBS ACHS with sliding scale coverage. (5) Transient hypotension Is this a current diagnosis for this admission?: Yes Plan: Patient received 40 mg IV lasix in ED and subsequently became hypotensive. Patient's blood pressures normalizing. Hold patient's home antihypertensives. Continue to monitor blood pressures. (6) Pancreatic cyst Is this a current diagnosis for this admission?: Yes Plan: Stable. Continue Creon. - Time Time Spent with patient: Time spent with patient including review of chart, assessment, education, family meeting and formulation of plan was 60 mins. Anticipated discharge: Home Within: within 24 hours Disposition: Plan of care was explained to patient and patient's son in depth. Stated that more information would be available and given after the bone scan.
[2018-04-19] MEDS ORDERED: MEGESTROL ACETATE SUSP 400 MG/10 ML UDCUP PO ONE (19:00)
[2018-04-19] MEDS ORDERED: MIRTAZAPINE 15 MG TABLET PO SCH (20:00)
[2018-04-19] MEDS: LIDOCAINE 5% (700 MG) TRANSDERMAL ADH..PATCH TP SCH (20:11)
[2018-04-19] MEDS: LACTOBACILLUS ACIDOPHILUS 250 MG TAB PO SCH (20:11)
[2018-04-19] MEDS: NIFEDIPINE 30 MG TAB.ER.24 PO SCH (21:32)
[2018-04-19] MEDS: PIPERACILLIN SODIUM/TAZOBACTAM 3.375 GM in NORMAL SALINE 100 ML IV SCH (21:34)
[2018-04-19] MEDS ORDERED: CEFTRIAXONE SODIUM 1,000 MG in DEXTROSE 5%-WATER 50 ML IV SCH (22:00)
[2018-04-20] MEDS ORDERED: METOPROLOL TARTRATE PF/INJ 5 MG/5 ML SDV IV ONE ×2 (00:17→00:30)
[2018-04-20] MEDS: PIPERACILLIN SODIUM/TAZOBACTAM 3.375 GM in NORMAL SALINE 100 ML IV SCH ×4 (03:52→21:32)
[2018-04-20] MEDS: HEPARIN SOD (PORCINE) 5,000 UNIT/ML 1 ML SYRINGE SUBCUT SCH ×3 (05:30→21:16)
--- NOTE | 2018-04-20 07:52 | EKG REPORT ---
SEVERITY:- ABNORMAL ECG - SINUS TACHYCARDIA INCOMPLETE RIGHT BUNDLE BRANCH BLOCK NONSPECIFIC ST-T CHANGES- INFERIOR LEADS : Confirmed by: Mikey Marie MD 20-Apr-2018 07:51:58
[2018-04-20] MEDS ORDERED: NORMAL SALINE 500 ML IV PRN ×2 (08:17→11:40)
[2018-04-20] MEDS: LACTOBACILLUS ACIDOPHILUS 250 MG TAB PO SCH ×2 (09:38→18:36)
[2018-04-20] MEDS: LANSOPRAZOLE 30 MG TAB.RAP.DR PO SCH (09:38)
[2018-04-20] MEDS: INSULIN GLARGINE,HUM.REC.ANLOG 300 UNIT/3 ML INSULN.PEN SUBCUT SCH (09:38)
[2018-04-20] MEDS: NIFEDIPINE 30 MG TAB.ER.24 PO SCH ×2 (09:39→21:32)
[2018-04-20] MEDS: LIDOCAINE 5% (700 MG) TRANSDERMAL ADH..PATCH TP SCH (09:42)
[2018-04-20 09:51] LABS: ALANINE AMINOTRANSFERASE 23 U/L (21-72); ALBUMIN 2.4 g/dL (3.5-5.0); ALKALINE PHOSPHATASE 647 U/L (38-126); ANION GAP 9 (5-19); ASPARTATE AMINO TRANSFERASE 22 U/L (17-59); BILIRUBIN,DIRECT 0.6 mg/dL (0.0-0.4); BILIRUBIN,TOTAL 0.9 mg/dL (0.2-1.3); BLOOD UREA NITROGEN 24 mg/dL (7-20); CALCIUM 8.7 mg/dL (8.4-10.2); CARBON DIOXIDE 27 mmol/L (22-30); CHLORIDE 99 mmol/L (98-107); GLUCOSE 193 mg/dL (75-110); POTASSIUM 3.8 mmol/L (3.6-5.0); SODIUM 135.3 mmol/L (137-145); TOTAL PROTEIN 5.4 g/dL (6.3-8.2)
[2018-04-20] MEDS ORDERED: ENOXAPARIN SODIUM INJ 80 MG/0.8 ML DISP.SYRIN SUBCUT SCH (10:00)
[2018-04-20] MEDS ORDERED: MEGESTROL ACETATE SUSP 400 MG/10 ML UDCUP PO SCH (10:00)
[2018-04-20] MEDS ORDERED: MIRTAZAPINE 15 MG TABLET PO SCH (11:33)
[2018-04-20] MEDS: INSULIN LISPRO 100 UNIT/ML 3 ML VIAL SUBCUT PRN ×2 (12:13→23:19)
[2018-04-20] MEDS: MEGESTROL ACETATE SUSP 400 MG/10 ML UDCUP PO SCH (15:24)
[2018-04-20] MEDS: METHYLPREDNISOLONE INJ 125 MG/2 ML SDV IV SCH ×2 (16:20→21:33)
--- NOTE | 2018-04-20 16:37 | TRANSFER SUMMARY E ---
Transfer Summary NAME: LIBRA GUZMAN : 1935 AGE: 83Y ADMITTED: 04/18/2018 TRANSFERRED: 04/20/2018 CODE STATUS: FULL CODE. PRIMARY CARE PROVIDER: Dr. Marie. RECEIVING FACILITY: [facility]. RECEIVING PHYSICIAN: Dr. Oliver. TRANSFER DIAGNOSES: Includes 1. Abnormal CT scan consistent of evidence of widely metastatic disease specifically mentioning cystic mass of the left quadrant possibly associated with stomach wall 13 x 8 cm with numerous lung nodules, biliary dilation and complex mass within the central pancreas with retroperitoneal adenopathy and possible necrosis. 2. Post obstructive pneumonia secondary to #1. 3. Acute kidney injury with a creatinine of 1.5. 4. Coronary artery disease which has been stable. 5. Diabetes mellitus type 2, and not obese. 6. New onset atrial fibrillation, currently rate controlled with evidence of now sinus arrhythmia. 7. Weight loss. 8. Hypotension. CURRENT MEDICATIONS: Include: 1. Zosyn 3.375 g IV q.6 hours. 2. Megace 600 mg p.o. daily. 3. Procardia XL 30 mg p.o. q.12 hours. 4. Remeron 15 mg p.o. q. evening. 5. Novolog sliding scale coverage. 6. Lactobacillus acidophilus 500 mg p.o. b.i.d. 7. Prevacid 30 mg p.o. q. a.m. 8. Creon 36,000 units 1 capsule p.o. b.i.d. 9. Lidoderm patch 1 patch topically to left chest wall. DIET: High calorie, high protein. Will be made n.p.o. for transfer. ACTIVITY: Will be made bedrest for transfer. CONDITION: Fair but stable. DIAGNOSTICS: Lab values are as follows: Hematology obtained on 04/19/2018: WBCs are 16.2, hemoglobin is 1.5, hematocrit is 32.2, platelet count is 150,000. Coagulation obtained on 04/19/2018: PT is 50.6, INR is 1.18. Chemistry obtained on 04/20/2018: Sodium is 135, potassium 3.8, chloride is 99, carbon dioxide 27, BUN 24, creatinine is 1.5, glucose 193. A1c is 7.1. Calcium is 8.7, magnesium is 1.8, bilirubin 0.9. AST 22, ALT 23, Alk phos 674. CK is 46, CKMB is 2.17. Troponin is 0.017. BNP is 796. Total protein is 5.4, albumin is 2.4, lipase is less than 10. Urinalysis obtained on 04/18/2018: Color yellow, appearance slightly cloudy, pH is 5.0, specific gravity is 1.015, protein 80. Glucose negative, ketones negative, occult blood negative, nitrite negative, bilirubin negative, urobilinogen is negative, leukocyte esterase is negative, WBCs 0, RBCs 0, casts 15, mucous rare, urine creatinine is 74.6, urine sodium is 44, ascorbic acid is negative. Microbiology: Blood cultures obtained on 04/18/[address] revealed [address] growth. Chest CT obtained on 04/18/2018: Please see the CD that will go with the transfer packet at this time. I will dictate the impression. Reveals extensive cavitary as well as non-cavitary solid nodules bilaterally likely metastatic in nature of more confluent airspace opacity in the anterior left upper lobe also demonstrates a cavitary component, tiny left pleural effusions. Limited evaluation of the upper abdomen shows partial visualization of a complex mass appearing to be in the center within the pancreas with suspected retroperitoneal adenopathy which appears possibly necrotic. There is biliary ductal dilation, partial visualization of a poorly defined lesion within the right hepatic lobe, ascites noted. Peritoneal inflammatory changes and nodularity for which metastatic implants are not excluded. Cystic mass of the left upper quadrant possibly associated with a stomach wall versus extending exophytically from the pancreas causing a mass effect on the stomach. Noted that this CT scan was performed without contrast. Renal ultrasound obtained on 04/18/2018 revealed mild hydronephrosis with urinary bladder. Appears normal. In the superior pole of the right kidney, there is a heterogenous cystic structure with internal with multiple bilateral simple appearing renal cyst. Chest x-ray obtained on 04/18/2018 revealed a dense opacity within the left mid zone evidence of left basilar pneumonia. PHYSICAL EXAMINATION: GENERAL: On examination, the patient is a frail, chronically ill appearing, 83-year-old male who is awake, alert, and oriented to person, place, time, and situation. He is verbal, conversational, extremely pleasant, quite stoic, does not appear to be distressed. VITAL SIGNS: Temperature is 99.1, pulse 109, respirations 20, blood pressure is 94/51, oxygen saturation 92% on room air. SKIN: Very pale. He appears slightly diaphoretic. CARDIOVASCULAR SYSTEM: Heart is irregular. Currently appears in sinus arrhythmia on the monitor. CHEST: Rhonchorous. Lungs sounds noted in the left lung bases. Symmetrical, currently unlabored. ABDOMEN: Distended. No area of focal tenderness. EXTREMITIES: There is no edema. PSYCHIATRIC: Appropriate affect. HISTORY OF PRESENT ILLNESS: The patient is an 83-year-old male with a past medical history of coronary artery disease, with history of DE and 5 stent placement. The patient presented to the emergency department with a chief complaint of shortness of breath. The patient stated that his symptoms began around Thanksgiving when he started feeling quite ill. The patient prepared Thanksgiving dinner and stated after that he has not had an appetite since. The patient stated that overall he has been anorexic since that time with absolutely no appetite. He does complain of some lower abdominal pain and that at times he will sleep for 16 hours. The patient noted on Sunday that he started having left shoulder pain which was sharp and intense in nature, was disrupting his sleep. The patient noted that it was not getting worse with movement and could not get significant relief. He also noticed a progressive shortness of breath, especially on exertion. The patient stated that he has lost 50 pounds in the last 3 years and feels some of it was intentional. The patient described in the past year weight just falling off of him. The patient denied any night sweats. The patient went to see his doctor in [place] and was concerned about his shortness of breath and he was referred to the emergency department here for evaluation. Upon presentation to the emergency department, the patient was found to have a left lower lobe pneumonia, possible mass. He was hypotensive and was given 20 of Lasix which dropped his blood pressure and therefore he received IV fluids and was referred to the hospitalist for admission and management. HOSPITAL COURSE: The patient was admitted to continuous telemetry unit. The patient was initially treated for CAP with Rocephin and azithromycin. The patient did have a CT scan done without contrast. Given that the patient did have a significant acute kidney injury which was suggestive of multiple areas of masses that were concerning for metastatic disease. The patient's coverage was therefore transitioned over to a post obstructive coverage as well as the coverage of the gut. He has been on Zosyn for greater than 24 hours. The patient's white count was initially 14.6. At this time, it is 16.2. Interestingly, the patient did have an Alk phos of 747 which with hydration has come down to 647. The patient gave a history of having extensive workup for pancreatic pseudocyst done at [facility] and lesions within the pancreas were biopsied that, by the patient's account, was an unremarkable workup. The patient had put this in the back of his mind after that and did not feel that this was an issue. The morning of 04/20/2018, the patient was found to be in atrial fibrillation with a rapid ventricular response. He received a bolus of fluid. Had enough blood pressure to work with to resume him home Procardia. The patient is currently in sinus arrhythmia and actually looks like he is trying to convert with just resuming his home Procardia. The patient has not required a drip. He is rate controlled at this time with a rate in the low 100s. The patient is unable to take p.o. He does have this cystic type mass in his abdomen. Unfortunately, the limitations of this facility do not accommodate a full workup for this patient. I have not used contrast to CT the patient further as I do want to preserve his kidneys and contacted [facility] in [place]. The patient and the family are agreeable to transfer. TRANSFER PLANNING: The patient will be received as a service of intermediate care under the Medicine Service at [facility] in [place]. At this time, I would like to thank Dr. Oliver and the [facility] for graciously participating in the care of this kind patient. Time spent on this transfer including assessment, plan, physical examination, patient education, review of records, family discussion is 70 minutes. DICTATING PHYSICIAN: TAIWO LOGAN NP [id number] PHY#: [id number] ID: [id number] JOB#: [id number] ACCT: [id number] cc:TAIWO LOGAN NP > [facility]
[2018-04-20] MEDS: NORMAL SALINE 1000 ML 1,000 ML IV PRN (18:40)
[2018-04-20] MEDS ORDERED: LIDOCAINE 5% (700 MG) TRANSDERMAL ADH..PATCH TP SCH (22:00)
--- NOTE | 2018-04-20 22:33 | EKG REPORT ---
SEVERITY:- ABNORMAL ECG - SINUS RHYTHM WITH PACS, RATE 81-140 INCOMPLETE RIGHT BUNDLE BRANCH BLOCK ABNRM R PROG, CONSIDER ASMI OR LEAD PLACEMENT : Confirmed by: Mikey Marie MD 20-Apr-2018 22:32:19
[2018-04-21] MEDS: PIPERACILLIN SODIUM/TAZOBACTAM 3.375 GM in NORMAL SALINE 100 ML IV SCH ×3 (03:51→14:53)
[2018-04-21] MEDS: NORMAL SALINE 1000 ML 1,000 ML IV PRN (03:53)
[2018-04-21] MEDS: HEPARIN SOD (PORCINE) 5,000 UNIT/ML 1 ML SYRINGE SUBCUT SCH ×2 (06:33→15:23)
[2018-04-21] MEDS: METHYLPREDNISOLONE INJ 125 MG/2 ML SDV IV SCH (06:51)
[2018-04-21] MEDS: INSULIN LISPRO 100 UNIT/ML 3 ML VIAL SUBCUT PRN ×2 (08:17→13:11)
[2018-04-21] MEDS: LANSOPRAZOLE 30 MG TAB.RAP.DR PO SCH (08:18)
[2018-04-21] MEDS: LACTOBACILLUS ACIDOPHILUS 250 MG TAB PO SCH (10:14)
[2018-04-21] MEDS: NIFEDIPINE 30 MG TAB.ER.24 PO SCH (10:15)
[2018-04-21] MEDS: MEGESTROL ACETATE SUSP 400 MG/10 ML UDCUP PO SCH (10:15)
[2018-04-21] MEDS: INSULIN GLARGINE,HUM.REC.ANLOG 300 UNIT/3 ML INSULN.PEN SUBCUT SCH (10:16)
[2018-04-21 13:49] VITALS: BP 111/67
[2018-04-21] MEDS ORDERED: LIPASE/PROTEASE/AMYLASE 1 CAP CAPSULE.DR PO ONE (16:00)
--- NOTE | 2018-04-21 17:39 | Progress Note ---
Provider Note Provider Note: This is an addendum to the transfer summary dictated yesterday. There is been no change in the plan of care from yesterday. There is been no change in his active management. The plan is continued as noted in the summary. Of note, his appetite has improved and he was able to eat a regular diet today.
== END 2018-04-21 16:10 | disposition short-term general hospital (02) | DRG 194 ==
LOC: ER 17:51 → EH 22:05 → 5 23:33 → 3S 04-20 10:24
PROVIDERS: ADMIT Internal Medicine; ATTEND Internal Medicine
DX: J18.9 Pneumonia, unspecified organism (principal); N17.9 Acute kidney failure, unspecified; K86.2 Cyst of pancreas; N13.30 Unspecified hydronephrosis; Q61.02 Congenital multiple renal cysts; I95.9 Hypotension, unspecified; E11.9 Type 2 diabetes mellitus without complications; I25.10 Atherosclerotic heart disease of native coronary artery without angina pectoris; I50.9 Heart failure, unspecified; I11.0 Hypertensive heart disease with heart failure; I48.91 Unspecified atrial fibrillation; R91.8 Other nonspecific abnormal finding of lung field; E78.00 Pure hypercholesterolemia, unspecified; I25.2 Old myocardial infarction; Z88.6 Allergy status to analgesic agent; Z79.899 Other long term (current) drug therapy; Z88.8 Allergy status to other drugs, medicaments and biological substances; Z95.5 Presence of coronary angioplasty implant and graft; Z82.49 Family history of ischemic heart disease and other diseases of the circulatory system; Z80.49 Family history of malignant neoplasm of other genital organs
CPT/HCPCS: 36415; 71045; 71250; 76770; 78306; 80053; 81001; 82550; 82553; 82570; 82962; 83036; 83690; 83735; 83880; 84300; 84484; 85025; 85610; 85730; 87040; 93005; 93010; 93306; 96365; 96375; 96376; 99285; A9561; J0456; J0696; J1644; J1815; J1940; J2543; J2930; J3490; J7030; J7040; J7060; Q9969